=== PATIENT | female | born 1955 | race Caucasian/White ===

== ENCOUNTER 2019-12-15 20:18 | Emergency (ER) | payer OTHER ==
--- OUTSIDE RECORDS SUMMARY | 2019-12-15 20:21 | XMS REPORT | Continuity of Care Document ---
:1955 Author Organization [facility] t Address [address] [place] [address] Care Team Providers Name Role Phone Batsheva Duenas Attending Clinician Unavailable Payers Payer Name Policy Type Policy Number Effective Date Expiration Date S ource Problems Condition Condition Condition Status Onset Resolution Last Treating Co mments Source Name Details Category Date Date Treatment Clinician Date ABNORMALIT Diagnosis Active 2019-02-26 Memoria Y OF 8-20 08:39:00 l PLASMA 00:00: Phillips PROTEIN ABNORMALIT 00 Y OF PLASMA PROTEIN Active 02/20/2019 Claudy Hernandez Allergies, Adverse Reactions, Alerts Allergy Allergy Status Severity Reaction(s) Onset Inactive Treating Comm ents Source Name Type Date Date Clinician penicill penicill Active Memori a ins ins l David Social History Smoking Status Start Date Stop Date Source Social History 2019-02-23 19:45:46 2019-02-23 19:45:46 Claudy Hernandez Medications Ordered Filled Start Stop Current Ordering Indication Dosage Frequency Signature Comments Components Source Medication Medication Date Date Medication? Clinician (SIG) Name Name Lamictal 2019 Yes 200 mg, Memori a 8-23 PO, Daily, l 19:47: 0 Phillips 00 Refill(s) Thyroxine 2019- Yes 88 Memoria 8-23 microgram, l 19:47: PO, Daily, David 00 0 Refill(s) Celebrate 2018- Yes See Memoria Multivitami 02-23 Instructio l n 19:47: ns, Take Phillips 00 (1) tab by mouth daily, 0 Refill(s) quetiapine 2019 Yes See Memoria 300 MG Oral 8-23 Instructio l Tablet 19:47: ns, 1 tab Andrés n [Seroquel] 00 PO Daily, 0 Refill(s) atorvastati Yes 40 mg = 1 M emoria n 40 MG 8-23 tab, PO, l Oral Tablet 19:47: Bedtime, # Phillips [Lipitor] 00 90 tab, 1 Refill(s) Fluoxetine Yes 40 mg = 1 Me moria 40 MG Oral 8-23 cap, PO, l Capsule 19:47: Daily, # Andrés n [Prozac] 00 30 cap, 0 Refill(s) Vital Signs Vital Name Observation Time Observation Value Comments Source Height 2019-02-23 19:31:[address] [facility] Weight 2019-02-23 19:31:00 [facility] BMI Calculated 2019-02-23 19:31:00 [facility] Main Procedures Procedure Date / Time Performed Performing Clinician Sourc e Tonsillectomy [facility] Encounters Start End Encounter Admission Attending Care Care Encounter Source Date/Time Date/Time Type Type Clinicians Facility Department ID 2019-02-26 2019-02-26 Outpatient JOSE Duenas [facility] [id number] 08:32:00 23:59:00 [place]au 00 Batsheva 2019-02-26 2019-02-26 Outpatient [facility] [id number] 08:32:00 08:32:00 Results Test Description Test Time Test Comments Results Result Comments Source HEMATOLOGY 2019-02-26 1.1 [facility] nn 13:52:00 HEMATOLOGY 2019-02-26 4.9 [facility] nn 13:52:00 HEMATOLOGY 2019-02-26 4.01 [facility] nn 13:52:00 HEMATOLOGY 2019-02-26 12.4 [facility] nn 13:52:00 HEMATOLOGY 2019-02-26 35.1 [facility] nn 13:52:00 HEMATOLOGY 2019-02-26 87.6 [facility] nn 13:52:00 HEMATOLOGY 2019-02-26 13:52:00 Test Item Value Reference Range Interpretation Comme nts MCH (test code = MCH) 30.8 pg 27.0-31.0 [id number] 13:52:[facility].2[facility] 2019-02-26 13:52:0014.6[facility] WqjctseZECVZHZEKD2190-07-44 13:52:59086Lwmgqcqr BaigxovNWBACDIAJA6861-59-28 13:52:006.5[facility] PyyhrnsMHKYWCGKJK6485-41-79 13:52:002.7[facility] SbehrkyFNIOERXWFR1933-90-15 13:52:001.6[facility] David [id number] 13:52:000.4[facility] OdoziplBANMTUOWDF2069-91-53 13:52:000.2 [facility] HdtfmolEWUICOXXJQ5571-86-88 13:52:0055.0[facility] 2019-02-26 13:52:000.0[facility] DyjjsxgFWWHDELIVN6861-76-67 13:52:0033.0[facility] BnczxbpUAHJWPRSLC0467-38-05 13:52:008.0[facility] CsvqgqiDNNXNUAJFY9247-79-43 13:52:004.0[facility] MtqybqkTUZKKLBHCJ4223-34-48 13:52:000.0[facility] David [id number] 13:52:00Normal (02/26/19 8:52 AM)[facility] 2019-02-26 13:52:00Normal (02/26/19 8:52 AM)[facility]
--- OUTSIDE RECORDS SUMMARY | 2019-12-15 20:21 | XMS REPORT | Continuity of Care Document ---
:1955 Author Organization [facility] Care Team Providers Name Role Phone [facility] Unavailable Un available Problems Problem Status Onset Classification Date Comments Sourc e Date Reported ABNORMALITY OF Active Memor ial PLASMA PROTEIN 9 Carrie nn Medications Medication Details Route Status Patient Ordering Order Source Instructions Provider Date Lamictal 200 mg, Active PO, Daily, 019 [place] 0 Refill(s) Thyroxine 88 Active MH microgram, 019 [place] PO, Daily, 0 Refill(s) Celebrate See Active Multivitamin Instructio 019 [place] ns, Take (1) tab by mouth daily, 0 Refill(s) quetiapine 300 See Active MG Oral Tablet Instructio 019 [place] [Seroquel] ns, 1 tab PO Daily, 0 Refill(s) atorvastatin 40 40 mg = 1 Active MH MG Oral Tablet tab, PO, 019 [place] [Lipitor] Bedtime, # 90 tab, 1 Refill(s) Fluoxetine 40 40 mg = 1 Active MH MG Oral Capsule cap, PO, 019 [place] [Prozac] Daily, # 30 cap, 0 Refill(s) Allergies, Adverse Reactions, Alerts Substance Category Reaction Severity Reaction Status Date Comments S ource type Reported penicillins Assertion Drug Active allergy [place] Immunizations No Data Provided for This Section Results Order Name Results Value Reference Date Interpretation Comments Leslie rce Range HEMATOLOGY Retic Auto 1.1 0.5 - 1.5 2018 [place] HEMATOLOGY WBC 4.9 3.7 - 10.4 2018 [place] HEMATOLOGY RBC 4.01 4.20 - 5.40 2018 [place] HEMATOLOGY Hgb 12.4 12.0 - 16.0 2018 [place] HEMATOLOGY Hct 35.1 36.0 - 48.0 2018 [place] HEMATOLOGY MCV 87.6 80.0 - 98.0 2018 [facility] MCH 30.8 27.0 - 31.0 2018 [facility] MCHC 35.2 32.0 - 36.0 2018 [facility] RDW 14.6 11.5 - 14.5 2018 [facility] Platelet 223 133 - 450 2018 [facility] MPV 6.5 7.4 - 10.4 2018 [facility] Neutrophils # 2.7 1.5 - 8.1 2018 [facility] Lymphocytes # 1.6 1.0 - 5.5 2018 [facility] Monocytes # 0.4 0.0 - 0.8 2018 [facility] Eosinophils # 0.2 0.0 - 0.5 2018 [facility] Segs 55.0 45.0 - 75.0 2018 [place] HEMATOLOGY Bands 0.0 0.0 - 11.0 2018 [facility] Lymphocytes 33.0 20.0 - 40.0 2018 [facility] Monocytes 8.0 2.0 - 12.0 2018 [facility] Eosinophils 4.0 0.0 - 4.0 2018 [facility] Atypical 0.0 <=0.0 % Lymphs 2018 [facility] RBC Morph Normal Normal (02/26/19 8:52 AM) 2018 [facility] nd HEMATOLOGY Plt Morph Normal Normal (02/26/19 8:52 AM) 2018 [facility] Pathology Reports No Data Provided for This Section Diagnostic Reports Report Value Date Source Bone Marrow Bio/Aspr Patient Name: MICHAEL ROGERS 02/26/2019 [facility] : 1955; Age: 63 years Female MR: [id number] PROCEDURE: 1. CT-guided bone marrow biopsy and aspiration o f the left iliac bone 2. Moderate sedation CLINICAL INFORMATION: Abnormal plasma protein CONSENT: The procedure, risk s, benefits and alternatives were discussed with the patient and written informed consent was obtained. A 'time out' was performed per protocol prior to the procedure. TECHNIQUE: CT imaging performed at this location utilizes radiation dose optimization techniques which include one or more of the following: -Automated exposure control -Adjustment of the mA and/or kV according to pat ient size -Use of iterative reconstruction technique log haul operator: Dr. Blankenship Preoperative diagnosis: Abnormal plasma protein Postoperative diagnosis: Same Radiation dose: 274.89 mGycm Estimated blood loss: Minimal Moderate sedation: I superv ised moderate sedation during this procedure. The patient was continuously monitored by a nurse using automated blood pressure, electrocardiogram, and pulse oximetry. [facility] is per manently stored in the hospital information system. The personal supervised moderate sedation time was 13 minutes. Medications administered: Versed 2 mg IV and Fentanyl 100 mcg IV. The patient was placed in a prone position on the CT table. The left upper gluteal region was prepped and draped with sterile technique and the skin was anesthetized with 1% lidocaine. Under CT guidance, an 11-gau [employer] bone biopsy needle was advanced into the left iliac bone. Approximately 10 mL of bone marrow aspirate was obtained. Subsequently, the biopsy needle was repositioned and a core sample obtained. Both t he core and marrow aspirate were given to the heating and cooling technician. The needles were removed and sterile dressing applied. Patient tolerated the proced ure well and transferred to the recovery room in stable condition. IMPRESSION: Successful bone marrow biopsy. SL: [id number] Consultation Notes No Data Provided for This Section Discharge Summaries No Data Provided for This Section History and Physicals No Data Provided for This Section Vital Signs Vital Sign Value Date Comments Source Height 170.18 cm 02/23/2019 [facility] Weight 75 02/23/2019 [facility] BMI Calculated 25.9 02/23/2019 [facility] Encounters Location Location Encounter Encounter Reason Attending ADM [place] Stat Source Details Type Number For Provider Date Date Visit [facility] [id number] Clau 02/26 02/27 David Duenas /2018 [facility] Procedures Procedure Code Date Perfomer Comments Source Tonsillectomy [id number] [facility] Assessment and Plan No Data Provided for This Section Plan of Care No Data Provided for This Section Social History Social History Date Source Social History TypeResponse 02/23/2019 [facility] Smoking Status Former smoker; Exposure to Tobacco Smoke None; Cigarette Smoking Last 365 Days No; Reg Smoking Cessation Counseling No entered on: 8/23/19 Family History No Data Provided for This Section Advance Directives No Data Provided for This Section Functional Status No Data Provided for This Section
[2019-12-15] MEDS ORDERED: IBUPROFEN 400 MG TAB ONE (21:17)
[2019-12-15] MEDS ORDERED: HYDROCODONE/APAP 5/325 MG TAB ONE (22:31)
[2019-12-15] MEDS ORDERED: propofoL 200 MG/20 ML VIAL IV ONE (23:13)
[2019-12-15] MEDS ORDERED: NA CHLORIDE 0.9% 500 ML ONE (23:13)
[2019-12-15] MEDS ORDERED: MORPHINE 4 MG/ML SYR ONE (23:52)
--- NOTE | 2019-12-16 01:05 | EDPHYS ---
Physician Documentation [facility] Name: Inez Cline Age: 63 yrs Sex: Female : 1955 Arrival Date: 12/15/2019 Time: 20:21 Bed 3 Private MD: ED Physician Virgilio Covarrubias HPI: 12/15 00:49 This 63 yrs old Female presents to ER via Ambulatory with complaints of Fall tw4 Injury, Wrist Injury. 00:49 Details of fall: The patient fell from an upright position, while walking. Onset: The tw4 symptoms/episode began/occurred today. Associated injuries: The patient sustained left wrist, deformity, painful injury. Severity of symptoms: At their worst the symptoms were moderate, in the emergency department the symptoms are unchanged. The patient has not experienced similar symptoms in the past. Historical: - Allergies: 12/14 21:05 PENICILLINS; ca1 - Home Meds: 21:05 lamotrigine 200 mg oral tr24 1 tab once daily [Active]; levothyroxine 88 mcg tab 1 tab ca1 once daily [Active]; fluoxetine 40 mg Oral cap 1 cap once daily [Active]; quetiapine 300 mg oral tab 1 tab nightly [Active]; atorvastatin 40 mg oral tab 1 tab once daily [Active]; - PMHx: 21:05 Thyroid problem; High Cholesterol; ca1 - PSHx: 21:05 None; ca1 - Immunization history:: Adult Immunizations up to date, Last tetanus immunization: < 5 years ago. - Social history:: Smoking status: Patient/guardian denies using tobacco. ROS: 12/15 00:49 Constitutional: Negative for fever, chills, and weight loss, Eyes: Negative for injury, tw4 pain, redness, and discharge, Cardiovascular: Negative for chest pain, palpitations, and edema, Respiratory: Negative for shortness of breath, cough, wheezing, and pleuritic chest pain, Abdomen/GI: Negative for abdominal pain, nausea, vomiting, diarrhea, and constipation, Skin: Negative for injury, rash, and discoloration, Neuro: Negative for headache, weakness, numbness, tingling, and seizure. MS/extremity: Positive for injury or acute deformity, decreased range of motion, deformity, pain. Exam: 00:49 Constitutional: This is a well developed, well nourished patient who is awake, alert, tw4 and in no acute distress. Head/Face: Normocephalic, atraumatic. Chest/axilla: Normal chest wall appearance and motion. Nontender with no deformity. No lesions are appreciated. Cardiovascular: Regular rate and rhythm with a normal S1 and S2. No gallops, murmurs, or rubs. Normal PMI, no JVD. No pulse deficits. Respiratory: Lungs have equal breath sounds bilaterally, clear to auscultation and percussion. No rales, rhonchi or wheezes noted. No increased work of breathing, no retractions or nasal flaring. Abdomen/GI: Soft, non-tender, with normal bowel sounds. No distension or tympany. No guarding or rebound. No evidence of tenderness throughout. Back: No spinal tenderness. No costovertebral tenderness. Full range of motion. Skin: Warm, dry with normal turgor. Normal color with no rashes, no lesions, and no evidence of cellulitis. Neuro: Awake and alert, GCS 15, oriented to person, place, time, and situation. Cranial nerves II-XII grossly intact. Motor strength 5/5 in all extremities. Sensory grossly intact. Cerebellar exam normal. Normal gait. 00:49 Musculoskeletal/extremity: Extremities: noted in the left wrist: decreased ROM, deformity, pain. Vital Signs: 12/14 21:00 BP 171 / 93; Pulse 69; Resp 16 S; Temp 99.4(O); Pulse Ox 97% on R/A; Weight 70.31 kg ca1 (R); Height 5 ft. 7 in. (170.18 cm) (R); Pain 10/10; 23:00 BP 185 / 105; Pulse 69; Resp 16; Temp 97.8; Pulse Ox 98% ; rr5 12/15 00:56 BP 161 / 95; Pulse 62; Resp 17; Pulse Ox 100% ; rr5 01:15 rr5 12/14 21:00 Body Mass Index 24.28 (70.31 kg, 170.18 cm) ca1 12/14 23:00 succeeding VS please see moderate sedation form rr5 12/15 01:15 see moderate sedation for the VS rr5 MDM: 12/14 21:35 Patient medically screened. tw4 12/14 21:07 Order name: XRAY Hand LEFT 3 View ca1 12/14 21:07 Order name: XRAY Forearm LEFT ca1 12/14 23:50 Order name: Wrist Left (2 View) XRAY tw4 12/15 00:44 Order name: Wrist Left (2 View) XRAY tw4 12/14 23:55 Order name: [place] Forearm Splint; Complete Time: 23:56 rr5 12/14 23:55 Order name: Moderate Sedation; Complete Time: 23:56 rr5 12/15 01:36 Order name: Arm-Sling; Complete Time: 01:37 rr5 Administered Medications: 21:10 Drug: Ibuprofen 800 mg Route: PO; ca1 22:10 Follow up: Response: No adverse reaction rr5 22:31 Drug: [place] 5 mg-325 mg 1 tabs {Note: rass 0.} Route: PO; rr5 23:30 Follow up: Response: No adverse reaction; Pain is decreased; RASS: Alert and Calm (0) rr5 22:40 Drug: Propofol 100 mg Route: IVP; Site: right forearm; rr5 12/15 00:00 Follow up: Response: No adverse reaction; RASS: Alert and Calm (0) rr5 01:20 Drug: morphine 2 mg {Note: rass 0.} Route: IVP; Site: right forearm; rr5 01:30 Follow up: Response: No adverse reaction; Medication administered at discharge.; RASS: rr5 Alert and Calm (0) Disposition: 12/16/19 01:04 Discharged to Home. Impression: Colles' fracture of left radius. - Condition is Stable. - Discharge Instructions: Colles Fracture, Wrist Fracture Treated With Immobilization. - Prescriptions for Ibuprofen 800 mg Oral Tablet - take 1 tablet by ORAL route every 8 hours As needed take with food; 30 tablet. Tramadol 50 mg Oral Tablet - take 1 tablet by ORAL route every 8 hours as needed; 12 tablet. - Medication Reconciliation Form, Thank You Letter, Antibiotic Education, Prescription Opioid Use form. - Follow up: Private Physician; When: Upon discharge from the Emergency Department; Reason: Recheck today's complaints, Continuance of care, Re-evaluation by your physician. Follow up: Wilfrido Santana MD; When: Upon discharge from the Emergency Department; Reason: Recheck today's complaints, Continuance of care, Re-evaluation by your physician. Follow up: Ruel Kerr MD; When: Upon discharge from the Emergency Department; Reason: Recheck today's complaints, Continuance of care, Re-evaluation by your physician. Follow up: George Ross MD; When: Upon discharge from the Emergency Department; Reason: Recheck today's complaints, Continuance of care, Re-evaluation by your physician. Follow up: Jose Willson MD; When: Upon discharge from the Emergency Department; Reason: Recheck today's complaints, Continuance of care, Re-evaluation by your physician. - Problem is new. - Symptoms have improved. Signatures: Dispatcher [employer] [facility] Virgilio Covarrubias MD MD tw4 Chris Isaac RN RN rr5 Meredith Salmeron RN RN ca1 Corrections: (The following items were deleted from the chart) 12/14 21:56 21:08 Wrist Left 3 View+RAD.RAD.BRZ ordered. [facility] 21:56 21:08 Elbow Left 3 View+RAD.RAD.BRZ ordered. [facility] 12/15 01:05 01:04 12/16/2019 01:04 Discharged to Home. Impression: Colles' fracture of left radius. tw4 Condition is Stable. Forms are Medication Reconciliation Form, Thank You Letter, Antibiotic Education, Prescription Opioid Use. Follow up: Private Physician; When: Upon discharge from the Emergency Department; Reason: Recheck today's complaints, Continuance of care, Re-evaluation by your physician. Problem is new. Symptoms have improved. tw4 01:38 01:05 12/16/2019 01:04 Discharged to Home. Impression: Colles' fracture of left radius. rr5 Condition is Stable. Discharge Instructions: Colles Fracture, Wrist Fracture Treated With Immobilization. Prescriptions for Ibuprofen 800 mg Oral Tablet - take 1 tablet by ORAL route every 8 hours As needed take with food; 30 tablet, Tramadol 50 mg Oral Tablet - take 1 tablet by ORAL route every 8 hours as needed; 12 tablet. and Forms are Medication Reconciliation Form, Thank You Letter, Antibiotic Education, Prescription Opioid Use. Follow up: Private Physician; When: Upon discharge from the Emergency Department; Reason: Recheck today's complaints, Continuance of care, Re-evaluation by your physician. Follow up: Wilfrido Santana; When: Upon discharge from the Emergency Department; Reason: Recheck today's complaints, Continuance of care, Re-evaluation by your physician. Follow up: Dr. Ruel Kerr; When: Upon discharge from the Emergency Department; Reason: Recheck today's complaints, Continuance of care, Re-evaluation by your physician. Follow up: George Ross; When: Upon discharge from the Emergency Department; Reason: Recheck today's complaints, Continuance of care, Re-evaluation by your physician. Follow up: Jose Willson; When: Upon discharge from the Emergency Department; Reason: Recheck today's complaints, Continuance of care, Re-evaluation by your physician. Problem is new. Symptoms have improved. tw4
--- NOTE | 2019-12-16 01:05 | ER ---
Nurse's Notes [facility] Name: Inez Cline Age: 63 yrs Sex: Female : 1955 Arrival Date: 12/15/2019 Time: 20:21 Bed 3 Private MD: Diagnosis: Colles' fracture of left radius Presentation: 12/14 21:00 Chief complaint: Patient states: Tripped and fell, landed on L hand about an hour ago. ca1 Reports pain. Swelling, bruise and deformity noted on L hand and L wrist. Coronavirus screen: Proceed with normal triage. Patient denies a cough. Patient denies shortness of breath or difficulty breathing. Patient denies measured and/or subjective temperature greater than 100.4F prior to today's visit. Patient denies travel on a cruise ship or to a country the [facility] currently lists as an affected area. Patient denies contact with known and/or suspected case of COVID-19. Ebola Screen: Patient negative for fever greater than or equal to 101.5 degrees Fahrenheit, and additional compatible Ebola Virus Disease symptoms Patient denies exposure to infectious person. Patient denies travel to an Ebola-affected area in the 21 days before illness onset. No symptoms or risks identified at this time. Initial Sepsis Screen: Does the patient meet any 2 criteria? No. Patient's initial sepsis screen is negative. Does the patient have a suspected source of infection? No. Patient's initial sepsis screen is negative. Risk Assessment: Do you want to hurt yourself or someone else? Patient reports no desire to harm self or others. Onset of symptoms was December 15, 2019. 21:00 Method Of Arrival: Ambulatory ca1 21:00 Acuity: YOLANDA 4 ca1 21:40 Acuity: YOLANDA 3 ca1 Historical: - Allergies: 21:05 PENICILLINS; ca1 - Home Meds: 21:05 lamotrigine 200 mg oral tr24 1 tab once daily [Active]; levothyroxine 88 mcg tab 1 tab ca1 once daily [Active]; fluoxetine 40 mg Oral cap 1 cap once daily [Active]; quetiapine 300 mg oral tab 1 tab nightly [Active]; atorvastatin 40 mg oral tab 1 tab once daily [Active]; - PMHx: 21:05 Thyroid problem; High Cholesterol; ca1 - PSHx: 21:05 None; ca1 - Immunization history:: Adult Immunizations up to date, Last tetanus immunization: < 5 years ago. - Social history:: Smoking status: Patient/guardian denies using tobacco. Screenin:00 Abuse screen: Denies threats or abuse. Denies injuries from another. Nutritional rr5 screening: No deficits noted. Tuberculosis screening: No symptoms or risk factors identified. Fall Risk Fall in past 12 months (25 points). Total Fox Fall Scale indicates Low Risk Score (25-44 pts). Fall prevention measures have been instituted. Side Rails Up X 2 Frequent Obs/Assesments occuring As available Patient and Family Educated on Fall Prevention Program and strategies. Assessment: 22:00 General: Appears in no apparent distress. uncomfortable, Behavior is calm, cooperative, rr5 appropriate for age. 22:00 Pain: Complains of pain in left wrist Pain radiates to left hand Pain currently is 10 rr5 out of 10 on a pain scale. Quality of pain is described as aching, Pain began suddenly, Is continuous. Neuro: Level of Consciousness is awake, alert, obeys commands, Oriented to person, place, time, situation. Cardiovascular: Capillary refill < 3 seconds Patient's skin is warm and dry. Respiratory: Airway is patent Respiratory effort is even, unlabored, Respiratory pattern is regular, symmetrical. GI: No signs and/or symptoms were reported involving the gastrointestinal system. : No signs and/or symptoms were reported regarding the genitourinary system. EENT: No signs and/or symptoms were reported regarding the EENT system. Derm: Skin is intact, is healthy with good turgor, Skin temperature is warm. Musculoskeletal: Circulation, motion, and sensation intact. Capillary refill < 3 seconds. 22:40 Reassessment: Patient appears in no apparent distress at this time. Patient is alert, rr5 oriented x 3, equal unlabored respirations, skin warm/dry/pink. for conscious sedation. 23:35 Reassessment: Patient appears in no apparent distress at this time. Patient is alert, rr5 oriented x 3, equal unlabored respirations, skin warm/dry/pink. manual reduction under moderate sedation done by dr. huber myles. 12/15 00:15 Reassessment: Patient appears in no apparent distress at this time. Patient and/or rr5 family updated on plan of care and expected duration. Pain level reassessed. Patient is alert, oriented x 3, equal unlabored respirations, skin warm/dry/pink. Reassessment: Patient appears in no apparent distress at this time. 00:30 Reassessment: manual reduction readjust by ED provider under moderate sedation. rr5 01:30 Reassessment: Patient appears in no apparent distress at this time. Patient is alert, rr5 oriented x 3, equal unlabored respirations, skin warm/dry/pink. discharge instruction given and explained to pipeline engineer and patient without complaints made Patient states feeling better. Patient states symptoms have improved. Vital Signs: 12/14 21:00 BP 171 / 93; Pulse 69; Resp 16 S; Temp 99.4(O); Pulse Ox 97% on R/A; Weight 70.31 kg ca1 (R); Height 5 ft. 7 in. (170.18 cm) (R); Pain 10/10; 23:00 BP 185 / 105; Pulse 69; Resp 16; Temp 97.8; Pulse Ox 98% ; rr5 12/15 00:56 BP 161 / 95; Pulse 62; Resp 17; Pulse Ox 100% ; rr5 01:15 rr5 12/14 21:00 Body Mass Index 24.28 (70.31 kg, 170.18 cm) ca1 12/14 23:00 succeeding VS please see moderate sedation form rr5 12/15 01:15 see moderate sedation for the VS rr5 ED Course: 12/14 20:21 Patient arrived in ED. ds1 21:02 Triage completed. ca1 21:05 Arm band placed on right wrist. ca1 21:13 Affected limb iced. ca1 21:35 Chris Isaac RN is Primary Nurse. rr5 21:35 Virgilio Myles MD is Attending Physician. tw4 21:56 XRAY Hand LEFT 3 View In Process Unspecified. EDMS 21:56 XRAY Forearm LEFT In Process Unspecified. EDMS 22:30 Patient has correct armband on for positive identification. Bed in low position. Call rr5 light in reach. Side rails up X2. bus driver/monitor on. Pulse ox on. NIBP on. 22:30 Inserted saline lock: 20 gauge in right forearm, using aseptic technique. rr5 22:40 Oxygen administration via non-rebreather mask \T\ 15L/min Response to oxygen therapy:. rr5 22:45 Orthoglass splint: Sugar tong splint applied on left arm. rr5 12/15 00:19 Wrist Left (2 View) XRAY In Process Unspecified. EDMS 01:02 Wrist Left (2 View) XRAY In Process Unspecified. EDMS 01:05 Wilfrido Santana MD is Referral Physician. tw4 01:05 Ruel Kerr MD is Referral Physician. tw4 01:05 George Ross MD is Referral Physician. tw4 01:05 Jose Willson MD is Referral Physician. tw4 01:30 No provider procedures requiring assistance completed. IV discontinued, intact, rr5 bleeding controlled, No redness/swelling at site. Pressure dressing applied. Administered Medications: 12/14 21:10 Drug: Ibuprofen 800 mg Route: PO; ca1 22:10 Follow up: Response: No adverse reaction rr5 22:31 Drug: [place] 5 mg-325 mg 1 tabs {Note: rass 0.} Route: PO; rr5 23:30 Follow up: Response: No adverse reaction; Pain is decreased; RASS: Alert and Calm (0) rr5 22:40 Drug: Propofol 100 mg Route: IVP; Site: right forearm; rr5 12/15 00:00 Follow up: Response: No adverse reaction; RASS: Alert and Calm (0) rr5 01:20 Drug: morphine 2 mg {Note: rass 0.} Route: IVP; Site: right forearm; rr5 01:30 Follow up: Response: No adverse reaction; Medication administered at discharge.; RASS: rr5 Alert and Calm (0) Outcome: 01:04 Discharge ordered by . tw4 01:30 Discharged to home via wheelchair, with family. rr5 01:30 Condition: stable 01:30 Discharge instructions given to patient, family, Instructed on discharge instructions, follow up and referral plans. medication usage, Demonstrated understanding of instructions, follow-up care, medications, Prescriptions given X 2. 01:38 Patient left the ED. rr5 Signatures: Dispatcher [employer] [facility] Mine Simpson ds1 Virgilio Myles MD MD tw4 Chris Isaac, RN RN rr5 Meredith Salmeron RN RN ca1 Corrections: (The following items were deleted from the chart) 12/14 22:31 22:31 Phoenix 5 mg-325 mg 1 tabs PO rr5 rr5
[2019-12-16] MEDS ORDERED: MORPHINE 2 MG/ML SYR ONE (01:19)
[2019-12-16 01:47] VITALS: TEMP 97.8
[2019-12-16 01:49] VITALS: BP 161/95; O2SAT 100
--- NOTE | 2019-12-16 08:44 | RAD REPORT ---
EXAM DESCRIPTION: RAD - Hand Left 3 View - 12/15/2019 9:55 pm CLINICAL HISTORY: DEFORMITY, fall, wrist pain COMPARISON: None. FINDINGS: Comminuted transverse fracture of the distal radius is present. There is ventral dislocati on of the distal fracture fragment with 2 cm of overlap. No angulation deformity. Ulna styloid is fra ctured but not displaced. Carpal bones remain normally positioned to the dislocated distal radius fra cture. No carpal bone fracture. Soft tissue swelling over the wrist and hand are noted. No foreign nathaniel dy. IMPRESSION: Comminuted distal left radius fracture dislocation as detailed. Nondisplaced ulna styloid fracture.
--- NOTE | 2019-12-16 08:45 | RAD REPORT ---
EXAM DESCRIPTION: RAD - Forearm Left - 12/15/2019 9:56 pm CLINICAL HISTORY: PAINfall, arm pain COMPARISON: Left wrist same date FINDINGS: Distal radius and ulna fractures are detailed on the left wrist report. Remainder of the left forearm is intact. No elbow joint abnormality seen. Soft tissue swelling present without foreign body. IMPRESSION: Distal left radius and ulna fractures are detailed on wrist report. Remainder of left forearm is intact.
--- NOTE | 2019-12-16 08:56 | RAD REPORT ---
EXAM DESCRIPTION: RAD - Wrist Left 2 View - 12/16/2019 12:19 am FINDINGS: AP and lateral views the left wrist were obtained following reduction maneuvers. Ventral f racture dislocation is again noted. Dislocation and overlap deformities have been partially corrected .
--- NOTE | 2019-12-16 08:57 | RAD REPORT ---
EXAM DESCRIPTION: RAD - Wrist Left 2 View - 12/16/2019 1:01 am FINDINGS: Frontal and lateral views of the left wrist were obtained following additional reduction m andi. Ventral fracture dislocation is again noted. There has been some further correction of the distal fra cture fragment deformities.
== END 2019-12-16 01:38 | disposition home or self-care (01) ==
LOC: ER 20:18
PROC: 0PSJXZZ Reposition Left Radius, External Approach (ICD-10-PCS; principal; 2019-12-16)
DX: S52.532A Colles' fracture of left radius, initial encounter for closed fracture (principal); W19.XXXA Unspecified fall, initial encounter; Y93.01 Activity, walking, marching and hiking; Y92.9 Unspecified place or not applicable; E78.00 Pure hypercholesterolemia, unspecified; E07.9 Disorder of thyroid, unspecified; Z88.0 Allergy status to penicillin
CPT/HCPCS: 73130; 73090; 73100 ×2; 96375; 96374; 99285; 25400; J2704; J2270; J7040

== ENCOUNTER 2021-07-27 16:17 | Emergency (ER) | payer OTHER ==
--- OUTSIDE RECORDS SUMMARY | 2021-07-27 16:20 | XMS REPORT | Continuity of Care Document ---
:1955 Author Organization [facility] t Address [address] [place] [address] Care Team Providers Name Role Phone YORDY Attending Clinician Unavailable Payers Payer Name Policy Type Policy Number Effective Date Expiration Date S ource Problems Condition Condition Condition Status Onset Resolution Last Treating Co mments Source Name Details Category Date Date Treatment Clinician Date ABNORMALIT Diagnosis Active 2019-02-26 Memoria Y OF 8-20 08:39:00 l PLASMA 00:00: David PROTEIN ABNORMALIT 00 Y OF PLASMA PROTEIN [...] Date Date Medication? Clinician (SIG) Name Name Fluoxetine 2019- Yes 40 mg = 1 Me moria 40 MG Oral 8-23 cap, PO, l Capsule 19:47: Daily, # Andrés n [Prozac] 00 30 cap, 0 Refill(s) Lamictal 2019- Yes 200 mg, Memori a 8-23 PO, Daily, l 19:47: 0 [place] 00 Refill(s) Thyroxine 2019- Yes 88 Memoria 8-23 microgram, l 19:47: PO, Daily, David 00 0 Refill(s) Celebrate Yes See Memoria Multivitami 02-23 Instructio l n 19:47: ns, Take [place] 00 (1) tab by mouth daily, 0 Refill(s) quetiapine Yes See Memoria 300 MG Oral 02-23 Instructio l Tablet 19:47: ns, 1 tab Andrés n [Seroquel] 00 PO Daily, 0 Refill(s) atorvastati Yes 40 mg = 1 M emoria n 40 MG 02-23 tab, PO, l Oral Tablet 19:47: Bedtime, # David [Lipitor] 00 90 tab, 1 Refill(s) Vital Signs Vital Name Observation Time Observation Value Comments Source Height 2019-02-23 19:31:00 170.18 cm [facility] Weight 2019-02-23 19:31:00 [facility] BMI Calculated 2019-02-23 19:31:00 Adrian Main Procedures Procedure Date / Time Performed Performing Clinician Sour e Tonsillectomy [facility] Encounters Start End Encounter Admission Attending Care Care Encounter Source Date/Time Date/Time Type Type Clinicians Facility Department ID 2021-02-18 2021-02-18 Outpatient [facility] [id number] 00:00:00 00:00:00 KENN [facility] 2021-02-18 2021-02-18 Outpatient [facility] [id number] [address] [place] [address] 00:00:00 00:00:00 KENN [address] [facility] 2019-02-26 2019-02-27 Outpatient [facility] [id number] Memoria 13:32:00 04:59:00 ralph Hernandez 00 l [facility] 2019-02-26 2019-02-26 Outpatient [facility] [id number] [facility] 08:32:00 08:32:00 Results Test Description Test Time Test Comments Results Result Comments Source HEMATOLOGY 2019-02-26 4.9 Claudy Butler nn 13:52:00 HEMATOLOGY 2019-02-26 4.01 Claudy Butler nn 13:52:00 HEMATOLOGY 2019-02-26 12.4 Claudy Aguirrea nn 13:52:00 HEMATOLOGY 2019-02-26 35.1 Claudy Butler nn 13:52:00 HEMATOLOGY 2019-02-26 87.6 Claudy Aguirrea nn 13:52:00 HEMATOLOGY 2019-02-26 13:52:00 Test Item Value Reference Range Interpretation Comme nts MCH (test code = MCH) 30.8 pg 27.0-31.0 [facility] [id number] 13:52:0035.2[facility] 2019-02-26 13:52:0014.6[facility] [id number] 13:52:52229Kjutskyz PblauqfUBEUUTEVZV1080-81-18 13:52:006.5[facility] IislnzbDTFEHXACKM3834-07-62 13:52:002.7[facility] FazfgfeBYVNBREHRK3257-28-24 13:52:001.6[facility] David [id number] 13:52:000.4[facility] [id number] 13:52:000.2 [facility] EfghwupZKVYNUBAYM4315-32-70 13:52:0055.0[facility] 2019-02-26 13:52:000.0[facility] XavvepxJNLZGMCUYH7759-53-78 13:52:0033.0[facility] HbkhldhVMVSSQYDJI6638-24-42 13:52:008.0[facility] DfcsdazBULESZJXCC8340-60-76 13:52:004.0[facility] [id number] 13:52:000.0[facility] [place] [id number] 13:52:00Normal (02/26/19 8:52 AM)[facility] 2019-02-26 13:52:00Normal (02/26/19 8:52 AM)[facility] [id number] 13:52:001.1[facility] David
[2021-07-27] MEDS ORDERED: HYDROCODONE/APAP 7.5/325 MG TAB ONE (16:57)
--- NOTE | 2021-07-27 17:49 | RAD REPORT ---
EXAM DESCRIPTION: CT - Head Brain Wo Cont - 07/27/2021 5:35 pm CLINICAL HISTORY: DIZZINESS COMPARISON: No comparisons TECHNIQUE: Axial 5 mm thick images of the head were obtained without IV contrast. All CT scans are performed using dose optimization technique as appropriate and may include automated exposure control or mA/KV adjustment according to patient size. FINDINGS: No intracranial hemorrhage, mass, edema or shift of mid-line structures. No acute infarcti on changes seen. No abnormal extra-axial fluid collections. Ventricles are normal. No measurable atro phy or chronic ischemic changes seen. Arterial and physiologic calcifications are present. Mastoid air cells and visualized portions of the paranasal sinuses are clear. No acute bony findings. Patient has normal variant hyperostosis frontalis interna. Skin payal are present from laceration repair. A trace amount of hemorrhage seen in the scalp soft tissues. IMPRESSION: No intracranial abnormality identified. Only a trace amount of hemorrhage is seen in the scalp soft tissues at the laceration site.
--- NOTE | 2021-07-27 18:15 | EDPHYS ---
Physician Documentation [facility] Name: Inez Cline Age: 65 yrs Sex: Female : 1955 Arrival Date: 07/27/2021 Time: 16:20 Bed 10 Private MD: ED Physician Tyree Yin HPI: 07/27 18:08 This 65 yrs old Female presents to ER via Ambulatory with complaints of Fall Injury, jr8 Laceration To Head. 18:08 Details of fall: The patient fell from an upright position. Onset: The symptoms/episode jr8 began/occurred acutely, today. This is a 65-year-old female patient that presented to the emergency room after having an accidental slip and her kitchen floor causing her to land on the right side of her head. Denies loss of consciousness but had immediate pain with laceration and bleeding to the right side of the head. Currently with pain to the local site of her head but has not have any diffuse headache for patient. Stated that she is slightly dizzy at this time. Denies any other pain at this time.. Historical: - Allergies: 16:42 PENICILLINS; jd3 - PMHx: 16:42 High Cholesterol; Thyroid problem; jd3 - Immunization history:: Adult Immunizations up to date, Client reports receiving the 2nd dose of the Covid vaccine, Flu vaccine is up to date. - Social history:: Smoking status: Patient denies any tobacco usage or history of. ROS: 18:08 Eyes: Negative for injury, pain, redness, and discharge, ENT: Negative for injury, jr8 pain, and discharge, Neck: Negative for injury, pain, and swelling, Cardiovascular: Negative for chest pain, palpitations, and edema, Respiratory: Negative for shortness of breath, cough, wheezing, and pleuritic chest pain, Abdomen/GI: Negative for abdominal pain, nausea, vomiting, diarrhea, and constipation, Back: Negative for injury and pain, MS/Extremity: Negative for injury and deformity. 18:08 Skin: Positive for laceration(s), of the head. 18:08 Neuro: Positive for dizziness. Exam: 18:08 Eyes: Pupils equal round and reactive to light, extra-ocular motions intact. Lids and jr8 lashes normal. Conjunctiva and sclera are non-icteric and not injected. Cornea within normal limits. Periorbital areas with no swelling, redness, or edema. ENT: Nares patent. No nasal discharge, no septal abnormalities noted. Tympanic membranes are normal and external auditory canals are clear. Oropharynx with no redness, swelling, or masses, exudates, or evidence of obstruction, uvula midline. Mucous membranes moist. Neck: Trachea midline, no thyromegaly or masses palpated, and no cervical lymphadenopathy. Supple, full range of motion without nuchal rigidity, or vertebral point tenderness. No Meningismus. Chest/axilla: Normal chest wall appearance and motion. Nontender with no deformity. No lesions are appreciated. Cardiovascular: Regular rate and rhythm with a normal S1 and S2. No gallops, murmurs, or rubs. Normal PMI, no JVD. No pulse deficits. Respiratory: Lungs have equal breath sounds bilaterally, clear to auscultation and percussion. No rales, rhonchi or wheezes noted. No increased work of breathing, no retractions or nasal flaring. Abdomen/GI: Soft, non-tender, with normal bowel sounds. No distension or tympany. No guarding or rebound. No evidence of tenderness throughout. Back: No spinal tenderness. No costovertebral tenderness. Full range of motion. Skin: Warm, dry with normal turgor. Normal color with no rashes, no lesions, and no evidence of cellulitis. MS/ Extremity: Pulses equal, no cyanosis. Neurovascular intact. Full, normal range of motion. Neuro: Awake and alert, GCS 15, oriented to person, place, time, and situation. Cranial nerves II-XII grossly intact. Motor strength 5/5 in all extremities. Sensory grossly intact. Cerebellar exam normal. Normal gait. 18:08 Head/face: Noted is a laceration(s), that is deep, that is linear, 4 cm(s), of the right side of the back of head. Vital Signs: 16:44 BP 169 / 101; Pulse 77; Resp 18 S; Temp 97.4(TE); Pulse Ox 100% on R/A; Weight 77.11 kg jd3 (R); Height 5 ft. 7 in. (170.18 cm) (R); Pain 8/10; 16:44 Body Mass Index 26.63 (77.11 kg, 170.18 cm) jd3 Laceration: 17:04 Wound Repair of 4cm ( 1.6in ) subcutaneous laceration to head. Distal jr8 neuro/vascular/tendon intact. Wound prep: Moderate cleansing with hibiclenz. Skin closed with 4 payal [place] using interrupted sutures and sterile technique. Patient tolerated well. MDM: 17:04 Patient medically screened. jr8 18:13 Data reviewed: vital signs, nurses notes, radiologic studies, CT scan. Data jr8 interpreted: Pulse oximetry: on room air is 100 %. Interpretation: normal. Counseling: I had a detailed discussion with the patient and/or guardian regarding: the historical points, exam findings, and any diagnostic results supporting the discharge/admit diagnosis, the need for outpatient follow up, a family practitioner, to return to the emergency department if symptoms worsen or persist or if there are any questions or concerns that arise at home. ED course: Patient is up-to-date on tetanus. Close return precautions given if she were to have any altered mentation or worsening of symptoms. Otherwise knows to come back in 1 week for staple removal and wound recheck.. 07/27 16:53 Order name: CT Head Brain wo Cont; Complete Time: 17:57 jd3 Administered Medications: 16:59 Drug: [place] (HYDROcodone-acetaminophen) (7.5 mg-325 mg) 1 tabs Route: PO; jd3 Disposition: 19:04 Co-signature as Attending Physician, Tyree Yin MD I agree with the assessment and kdr plan of care. Disposition Summary: 07/27/21 18:14 Discharge Ordered Location: Home jr8 Problem: new jr8 Symptoms: have improved jr8 Condition: Stable jr8 Diagnosis - Laceration without foreign body of scalp jr8 Followup: jr8 - With: Emergency Department - When: 1 week - Reason: Wound Recheck, Recheck today's complaints, Staple/Suture removal, Re-evaluation by your physician Discharge Instructions: - Discharge Summary Sheet jr8 - Laceration Care, Adult jr8 - Sutures, [place], or Adhesive Wound Closure jr8 Forms: - Medication Reconciliation Form jr8 - Thank You Letter jr8 - Antibiotic Education jr8 - Prescription Opioid Use jr8 Signatures: Dispatcher [employer] EDMD Tyree Yin MD MD kdr Roszak, Josh, PA PA jr8 Montaño, Mc, RN RN jd3
--- NOTE | 2021-07-27 18:15 | ER ---
Nurse's Notes [facility] Name: Inez Cline Age: 65 yrs Sex: Female : 1955 Arrival Date: 07/27/2021 Time: 16:20 Bed 10 Private MD: Diagnosis: Laceration without foreign body of scalp Presentation: 07/27 16:40 Chief complaint: Patient states: "I slipped and fell and hit the back of my head on the jd3 tile floor. no LOC. no blood thinners. i am feeling a little dizzy now and have a bad headache.". Coronavirus screen: At this time, the client does not indicate any symptoms associated with coronavirus-19. Ebola Screen: No symptoms or risks identified at this time. Initial Sepsis Screen: Does the patient meet any 2 criteria? No. Patient's initial sepsis screen is negative. Does the patient have a suspected source of infection? No. Patient's initial sepsis screen is negative. Risk Assessment: Do you want to hurt yourself or someone else? Patient reports no desire to harm self or others. Onset of symptoms was July 27, 2021. 16:40 Method Of Arrival: Ambulatory j 16:40 Acuity: YOLANDA 3 jd3 Historical: - Allergies: 16:42 PENICILLINS; jd3 - PMHx: 16:42 High Cholesterol; Thyroid problem; jd3 - Immunization history:: Adult Immunizations up to date, Client reports receiving the 2nd dose of the Covid vaccine, Flu vaccine is up to date. - Social history:: Smoking status: Patient denies any tobacco usage or history of. Screenin:59 Abuse screen: Denies threats or abuse. Nutritional screening: No deficits noted. jd3 Tuberculosis screening: No symptoms or risk factors identified. Fall Risk Fall in past 12 months (25 points). Gait- Normal/Bed Rest/Wheelchair (0 pts) Mental Status- Oriented to own ability (0 pts). Total Fox Fall Scale indicates Low Risk Score (25-44 pts). Fall prevention measures have been instituted. Side Rails Up X 2 Placed close to Nursing Station Frequent Obs/Assesments occuring Family Present and informed to notify staff if they need to leave bedside. Assessment: 16:47 General: Appears in no apparent distress. comfortable, Behavior is calm, cooperative, jd3 appropriate for age. Pain: Complains of pain in head Quality of pain is described as aching, pressure, tender. Neuro: Level of Consciousness is awake, alert, obeys commands, Reports dizziness. Cardiovascular: No deficits noted. Respiratory: Airway is patent Respiratory effort is even, unlabored, Respiratory pattern is regular, symmetrical. GI: No signs and/or symptoms were reported involving the gastrointestinal system. : No signs and/or symptoms were reported regarding the genitourinary system. EENT: No signs and/or symptoms were reported regarding the EENT system. Derm: Skin is intact, Skin is dry, Skin is normal, Skin temperature is warm. Vital Signs: 16:44 BP 169 / 101; Pulse 77; Resp 18 S; Temp 97.4(TE); Pulse Ox 100% on R/A; Weight 77.11 kg j (R); Height 5 ft. 7 in. (170.18 cm) (R); Pain 8/10; 16:44 Body Mass Index 26.63 (77.11 kg, 170.18 cm) [facility] ED Course: 16:20 Patient arrived in ED. mr 16:42 Triage completed. jd3 16:44 Arm band placed on. jd3 16:59 Patient has correct armband on for positive identification. Bed in low position. Call j light in reach. Side rails up X 1. Adult w/ patient. Pulse ox on. NIBP on. 17:04 Blas Oconnor PA is PHCP. [facility] 17:04 Tyree Yin MD is Attending Physician. jr8 17:35 CT Head Brain wo Cont In Process Unspecified. EDOK 18:22 Gladis Beltran, JAYA is Primary Nurse. [facility] Administered Medications: 16:59 Drug: [place] (HYDROcodone-acetaminophen) (7.5 mg-325 mg) 1 tabs Route: PO; jd3 Outcome: 18:14 Discharge ordered by . jr8 18:22 Patient left the ED. [facility] Signatures: Dispatcher [employer] EDOK Alejandro Brianne mr Blas Oconnor PA PA jr8 Mc Montaño RN RN jGladis Lake RN RN [facility]
[2021-07-28 00:22] VITALS: BP 169/101; TEMP 97.4; O2SAT 100
== END 2021-07-27 18:22 | disposition home or self-care (01) ==
LOC: ER 16:17
PROC: 0JQ00ZZ Repair Scalp Subcutaneous Tissue and Fascia, Open Approach (ICD-10-PCS; principal; 2021-07-27)
DX: S01.01XA Laceration without foreign body of scalp, initial encounter (principal); W01.10XA Fall on same level from slipping, tripping and stumbling with subsequent striking against unspecified object, initial encounter; Y93.01 Activity, walking, marching and hiking; Z88.0 Allergy status to penicillin
CPT/HCPCS: 70450; 99283

== ENCOUNTER 2021-08-03 08:41 | Emergency (ER) | payer OTHER ==
--- OUTSIDE RECORDS SUMMARY | 2021-08-03 08:43 | XMS REPORT | Continuity of Care Document ---
:1955 Author Organization [facility] t Address [facility] [address] [place] [address] Care Team Providers Name Role Phone YORDY [...] a 8-23 PO, Daily, l 19:47: 0 [place] 00 Refill(s) Thyroxine 2018- Yes 88 Memoria 8-23 microgram, l 19:47: PO, Daily, [place] 00 0 Refill(s) Celebrate Yes See Memoria Multivitami 02-23 Instructio l n 19:47: ns, Take [place] 00 (1) tab by mouth daily, 0 Refill(s) quetiapine Yes See Memoria 300 MG Oral 02-23 Instructio l Tablet 19:47: ns, 1 tab Andrés n [Seroquel] 00 PO Daily, 0 Refill(s) atorvastati Yes 40 mg = 1 M emoria n 40 MG 02-23 tab, PO, l Oral Tablet 19:47: Bedtime, # [place] [Lipitor] 00 90 tab, 1 Refill(s) Vital Signs Vital Name Observation Time Observation Value Comments Source Height 2019-02-23 19:31:00 170.18 cm [facility] Weight 2019-02-23 19:31:00 [facility] David BMI Calculated 2019-02-23 19:31:00 [facility] Main Procedures Procedure Date / Time Performed Performing Clinician [facility] e Tonsillectomy [facility] Encounters Start End Encounter Admission Attending Care Care Encounter Source Date/Time Date/Time Type Type Clinicians Facility Department ID 2021-02-18 2021-02-18 Outpatient [facility] [id number] 00:00:00 00:00:00 KENN 213 Method i 2021-02-18 2021-02-18 Outpatient [facility] [id number] [address] [place] [address] 00:00:00 00:00:00 KENN 216 Method i 2019-02-26 2019-02-27 Outpatient [facility] [id number] Memoria 13:32:00 04:59:00 ralph Hernandez 00 l [facility] 2019-02-26 2019-02-26 Outpatient [facility] [id number] [facility] 08:32:00 08:32:00 Results Test Description Test Time Test Comments Results Result Comments Source HEMATOLOGY 2019-02-26 1.1 Claudy Butler nn 13:52:00 HEMATOLOGY 2019-02-26 4.9 Claudy Butler nn 13:52:00 HEMATOLOGY 2019-02-26 4.01 Claudy Aguirrea nn 13:52:00 HEMATOLOGY 2019-02-26 12.4 Claudy Aguirrea nn 13:52:00 HEMATOLOGY 2019-02-26 35.1 Claudy Aguirrea nn 13:52:00 HEMATOLOGY 2019-02-26 87.6 [facility] nn 13:52:00 HEMATOLOGY 2019-02-26 13:52:00 Test Item Value Reference Range Interpretation Comme nts MCH (test code = MCH) 30.8 pg 27.0-31.0 [facility] [id number] 13:52:0035.2[facility] 2019-02-26 13:52:0014.6[facility] YbvrzegREXXRXXKPZ8258-07-24 13:52:32865Qtkmfluz DatmsslKLJOYMILPA6788-54-81 13:52:006.5[facility] RaouidcMZOOARZLTA6745-86-48 13:52:002.7[facility] WpswgblGFFRQMMAWV7461-25-77 13:52:001.6[facility] [place] YRURFUIWDX8217-13-04 13:52:000.4[facility] KtexphhAODKEPDEUB6754-56-79 13:52:000.2 [facility] KlxemsqRUPILAGZRH5576-18-38 13:52:0055.0[facility] 2019-02-26 13:52:000.0[facility] CaryelrBELAMQSJPF6903-35-63 13:52:0033.0[facility] QmqlzezULNORDZRYG5533-97-95 13:52:008.0[facility] RadepqzHOUBYGVDIG6447-03-89 13:52:004.0[facility] XbifihtAUWLVSVCXS5595-88-02 13:52:000.0[facility] David KRRNTUAXJA3464-73-07 13:52:00Normal (02/26/19 8:52 AM)[facility] 2019-02-26 13:52:00Normal (02/26/19 8:52 AM)[facility] [place]
--- NOTE | 2021-08-03 08:55 | ER ---
Nurse's Notes [facility] Name: Inez Cline Age: 65 yrs Sex: Female : 1955 Arrival Date: 08/03/2021 Time: 08:43 Bed Waiting Private MD: Diagnosis: Encounter for removal of sutures-payal Presentation: 08/03 08:52 Chief complaint: Patient states: Here to have payal removed from back of head. Placed ss on 07/27. Coronavirus screen: Client denies travel out of the [place] in the last 14 days. Ebola Screen: Patient denies exposure to infectious person. Patient denies travel to an Ebola-affected area in the 21 days before illness onset. Initial Sepsis Screen: Does the patient meet any 2 criteria? No. Patient's initial sepsis screen is negative. Does the patient have a suspected source of infection? No. Patient's initial sepsis screen is negative. Risk Assessment: Do you want to hurt yourself or someone else? Patient reports no desire to harm self or others. Onset of symptoms was July 27, 2021. 08:52 Method Of Arrival: Ambulatory ss 08:52 Acuity: YOLANDA 5 ss Historical: - Allergies: 08:53 PENICILLINS; ss - PMHx: 08:53 High Cholesterol; Thyroid problem; ss - Immunization history:: Adult Immunizations up to date. - Social history:: Smoking status: Patient denies any tobacco usage or history of. Screenin:53 Abuse screen: Denies threats or abuse. Denies injuries from another. Nutritional ss screening: No deficits noted. Tuberculosis screening: Never had TB. Fall Risk None identified. Assessment: 08:53 General: Appears in no apparent distress. comfortable. Neuro: Level of Consciousness is ss awake, alert. Respiratory: Airway is patent Respiratory effort is even, unlabored, Respiratory pattern is regular, symmetrical. Derm: Skin is intact, is healthy with good turgor, Skin is pink, warm \T\ dry. normal. Vital Signs: 08:52 BP 131 / 83; Pulse 82; Resp 16; Temp 97.6(TE); Pulse Ox 98% on R/A; Pain 0/10; ss ED Course: 08:43 Patient arrived in ED. as 08:53 Triage completed. ss 08:53 Khadra Ortez FNP-C is PHCP. kb 08:53 Reynaldo Khan MD is Attending Physician. kb 08:53 Arm band placed on right wrist. ss 08:53 Patient has correct armband on for positive identification. ss 08:53 No provider procedures requiring assistance completed. Patient did not have IV access ss during this emergency room visit. Removal of Removed payal from scalp Warren site is well healed Removal by ADE Gaviria Patient tolerated well. Administered Medications: No medications were administered Outcome: 08:53 No charge visit due to suture removal. ss 08:54 Discharge ordered by . kb 08:55 Discharged to home ambulatory. ss 08:55 Condition: good 08:55 Discharge instructions given to patient, Instructed on discharge instructions, follow up and referral plans. Demonstrated understanding of instructions, follow-up care. 08:55 Patient left the ED. ss Signatures: Khadra Ortez, INDEPENDENT PRODUCER-C INDEPENDENT PRODUCER-Melly Patel Shelby, RN RN ss
--- NOTE | 2021-08-03 08:55 | EDPHYS ---
Physician Documentation [facility] Name: Inez Cline Age: 65 yrs Sex: Female : 1955 Arrival Date: 08/03/2021 Time: 08:43 Bed Waiting Private MD: ED Physician Reynaldo Khan HPI: 08/03 09:01 This 65 yrs old Female presents to ER via Ambulatory with complaints of Staple Removal. kb 09:01 The patient has payal on the scalp. Previous treatment: The patient was initially kb treated on July 27, 2021. Sutures/payal progress: The patient has no c/o's. The wound is well-healing with no redness, swelling, discharge, or dehiscence reported. The patient has not experienced similar symptoms in the past. The patient has not recently seen a physician. Historical: - Allergies: 08:53 PENICILLINS; ss - PMHx: 08:53 High Cholesterol; Thyroid problem; ss - Immunization history:: Adult Immunizations up to date. - Social history:: Smoking status: Patient denies any tobacco usage or history of. ROS: 09:00 Constitutional: Negative for fever, chills, and weight loss. kb 09:00 Skin: Positive for laceration(s), of the scalp, payal in place. 09:00 All other systems are negative. Exam: 09:00 Constitutional: This is a well developed, well nourished patient who is awake, alert, kb and in no acute distress. Head/Face: Normocephalic, atraumatic. ENT: Moist Mucous membranes Respiratory: Respirations even and unlabored. No increased work of breathing. Talking in full sentences MS/ Extremity: Pulses equal, no cyanosis. Neurovascular intact. Full, normal range of motion. Neuro: Awake and alert, GCS 15, oriented to person, place, time, and situation. Moves all extremities. Normal gait. Psych: Awake, alert, with orientation to person, place and time. Behavior, mood, and affect are within normal limits. 09:00 Skin: Wound recheck: Staple laceration closure: the wound is healing well, the edges are well approximated, no evidence of dehiscence, no drainage, no erythema, no swelling. Vital Signs: 08:52 BP 131 / 83; Pulse 82; Resp 16; Temp 97.6(TE); Pulse Ox 98% on R/A; Pain 0/10; ss Procedures: 09:00 Suture/Staple removal: Removed 4 payal, from scalp, site appears well healed, Patient kb tolerated well. MDM: 08:54 Patient medically screened. kb 09:00 Data reviewed: vital signs, nurses notes. Data interpreted: Pulse oximetry: on room air kb is 98 %. Interpretation: normal. Counseling: I had a detailed discussion with the patient and/or guardian regarding: the historical points, exam findings, and any diagnostic results supporting the discharge/admit diagnosis, the need for outpatient follow up, a family practitioner, to return to the emergency department if symptoms worsen or persist or if there are any questions or concerns that arise at home. Administered Medications: No medications were administered Disposition: 16:57 Co-signature as Attending Physician, Reynaldo Khan MD I agree with the assessment and rn plan of care. Attestation: The patient's history, exam findings, diagnostics, and a summary of any interventions or procedures was reviewed in detail with Khadra MORENO. Disposition Summary: 08/03/21 08:54 Discharge Ordered Location: Home kb Condition: Stable kb Diagnosis - Encounter for removal of sutures - payal kb Followup: kb - With: Emergency Department - When: As needed - Reason: Worsening of condition Followup: kb - With: Private Physician - When: 2 - 3 days - Reason: Recheck today's complaints, Continuance of care, Re-evaluation by your physician Discharge Instructions: - Discharge Summary Sheet kb - Suture Removal, Care After kb Forms: - Medication Reconciliation Form kb - Thank You Letter kb - Antibiotic Education kb - Prescription Opioid Use kb Signatures: Khadra Ortez FNP-C FNP-Reynaldo Styles MD MD rn Smirch, Shelby, RN RN ss
[2021-08-03 09:00] VITALS: BP 131/83; TEMP 97.6; O2SAT 98
== END 2021-08-03 08:55 | disposition home or self-care (01) ==
LOC: ER 08:41
DX: Z48.02 Encounter for removal of sutures (principal); E78.00 Pure hypercholesterolemia, unspecified; Z88.0 Allergy status to penicillin

== ENCOUNTER 2022-03-17 13:50 | Emergency (ER) | payer OTHER, SELFPAY ==
--- OUTSIDE RECORDS SUMMARY | 2022-03-17 13:52 | XMS REPORT | Continuity of Care Document ---
:1955 Author Organization [facility] t Address [address] [place] [address] Care Team Providers Name Role Phone Kenn Thomas MD Primary Care Physician GISELLE_YEN_Pavel_I Attending Clinician Unavailable KENN THOMAS Attending Clinician Unavailable Clau Duenas Attending Clinician Unavailable GISELLE_YEN_Pavel_I Admitting Clinician Unavailable Payers Payer Name Policy Type Policy Number Effective Date Expiration Date Juliann mabry [place]: [id number] 2021 [place] [employer] 00:00:00 [employer] (MEDICARE [id number] SUPPLEMENT) Problems Condition Condition Condition Status Onset Resolution Last Treating Co mments Source Name Details Category Date Date Treatment Clinician Date ABNORMALIT ABNORMALI Diagnosis Active 2019-02-26 Memoria Y OF TY OF 8-20 08:39:00 l PLASMA PLASMA 00:00: David PROTEIN PROTEIN 00 [facility] Allergies, Adverse Reactions, Alerts Allergy Allergy Status Severity Reaction(s) Onset Inactive Treating Comm ents Source Name Type Date Date Clinician penicill penicill Active Memori a ins ins l David Social History Social Habit Start Date Stop Date Quantity Comments Source Sex Assigned At [birth year] [facility] 00:00:00 00:00:00 Smoking Status Start Date Stop Date Source Tobacco smoking consumption [facility] unknown Social History 2019-02-23 19:45:46 2019-02-23 19:45:46 [facility] Medications Ordered Filled Start Stop Current Ordering Indication Dosage Frequency Signature Comments Components Source Medication Medication Date Date Medication? Clinician (SIG) Name Name Thyroxine Yes 88 Memoria 8-23 microgram, l 19:47: PO, Daily, David 00 0 Refill(s) Celebrate Yes See Memoria Multivitami 8-23 Instructio l n 19:47: ns, Take David 00 (1) tab by mouth daily, 0 Refill(s) quetiapine Yes See Memoria 300 MG Oral 8-23 Instructio l Tablet 19:47: ns, 1 tab Andrés n [Seroquel] 00 PO Daily, 0 Refill(s) Fluoxetine Yes 40 mg = 1 Me moria 40 MG Oral 8-23 cap, PO, l Capsule 19:47: Daily, # Andrés n [Prozac] 00 30 cap, 0 Refill(s) Lamictal Yes 200 mg, Memori a 8-23 PO, Daily, l 19:47: 0 [place] 00 Refill(s) Thyroxine Yes 88 Memoria 8-23 microgram, l 19:47: PO, Daily, [place] 00 0 Refill(s) Celebrate Yes See Memoria Multivitami 8-23 Instructio l n 19:47: ns, Take [place] 00 (1) tab by mouth daily, 0 Refill(s) quetiapine Yes See Memoria 300 MG Oral 8-23 Instructio l Tablet 19:47: ns, 1 tab Andrés n [Seroquel] 00 PO Daily, 0 Refill(s) atorvastati Yes 40 mg = 1 M emoria n 40 MG 8-23 tab, PO, l Oral Tablet 19:47: Bedtime, # David [Lipitor] 00 90 tab, 1 Refill(s) atorvastati Yes 40 mg = 1 M emoria n 40 MG 8-23 tab, PO, l Oral Tablet 19:47: Bedtime, # David [Lipitor] 00 90 tab, 1 Refill(s) Fluoxetine 2019-0 Yes 40 mg = 1 Me moria 40 MG Oral 8-23 cap, PO, l Capsule 19:47: Daily, # Andrés n [Prozac] 00 30 cap, 0 Refill(s) Lamictal 0 Yes 200 mg, Memori a 8-23 PO, Daily, l 19:47: 0 David 00 Refill(s) Vital Signs Vital Name Observation Time Observation Value Comments Source Height 2019-02-23 19:31:00 170.18 cm [facility] Weight 2019-02-23 19:31:00 [facility] BMI Calculated 2019-02-23 19:31:00 Adrian al [place] Procedures Procedure Date / Time Performed Performing Clinician [facility] e Tonsillectomy [facility] Plan of Care Planned Activity Planned Date Details Comments Source Future Scheduled 2022-03-03 SHINGLES VACCINES (1 Met [facility] Test 15:53:16 of 2) [code = SHINGLES VACCINES (1 of 2)] Future Scheduled 2022-03-03 65+ [facility]OC[address]CCAL [facility] Test 15:53:16 VACCINE (1 - PCV) [code = 65+ PNEUMOCOCCAL VACCINE (1 - PCV)] Future Scheduled 2022-03-03 INFLUENZA VACCINE Method [facility] Test 15:53:16 [code = INFLUENZA VACCINE] Future Scheduled 2022-03-03 HEPATITIS B VACCINES Met [facility] Test 15:53:16 (1 of 3 - 3-dose series) [code = HEPATITIS B VACCINES (1 of 3 - 3-dose series)] Future Scheduled 2022-03-03 COVID-19 VACCINE (#1) [facility] Test 15:53:16 [code = COVID-19 VACCINE (#1)] Future Scheduled 2022-03-03 Hepatitis C screening [facility] Test 15:53:16 (procedure) [code = 839372385] Future Scheduled 2022-03-03 Screening for [facility] Test 15:53:16 malignant neoplasm of cervix (procedure) [code = 940144126] Future Scheduled 2022-03-03 BREAST CANCER [facility] Test 15:53:16 SCREENING [code = BREAST CANCER SCREENING] Future Scheduled 2022-03-03 COLONOSCOPY SCREENING [facility] Test 15:53:16 [code = COLONOSCOPY SCREENING] Encounters Start End Encounter Admission Attending Care Care Encounter Source Date/Time Date/Time Type Type Clinicians Facility Department ID 2022-03-16 2022-03-16 Outpatient GC_TNC_Cher PRIV PRIV [id number] [facility] 00:00:00 00:00:00 ches_I [id number] Medica l 2022-03-12 2022-03-12 Outpatient GC_TNC_Cher PRIV PRIV [id number] [facility] 00:00:00 00:00:00 ches_I [id number] Medica l 2022-02-18 2022-02-18 Outpatient GC_TNC_Cher PRIV PRIV [id number] [facility] 00:00:00 00:00:00 ches_I [id number] Medica l 2022-02-15 2022-02-15 Outpatient GC_TNC_Cher PRIV PRIV [id number] [facility] 00:00:00 00:00:00 ches_I [id number] Medica l 2021-02-18 2021-02-18 Outpatient [facility] [id number] [place] 00:00:00 00:00:00 KENN [address] 2021-02-18 2021-02-18 Outpatient [facility] [id number] [place] 00:00:00 00:00:00 KENN [address] 2019-02-26 2019-02-27 [id number] [facility] 13:32:00 04:59:00 ralph Hernandez 00 l [facility] 2019-02-26 2019-02-27 [id number] Memoria 13:32:00 04:59:00 ralph Hernandez 00 l [facility] 2019-02-26 2019-02-26 Outpatient JOSE Duenas [facility] [id number] 08:32:00 23:59:00 Clau 00 [place] 2019-02-26 2019-02-26 Outpatient [facility] [id number] [facility] 08:32:00 08:32:00 2017-12-11 2017-12-11 Outpatient GC_TNC_Cher PRIV PRIV [id number] [facility] 00:00:00 00:00:00 ches_I [id number] Medica l Results Test Description Test Time Test Comments Results Result Comments Source HEMATOLOGY 2019-02-26 13:52:00 Test Item Value Reference Range Interpretation Comme nts Retic Auto (test code = Retic Auto) 1.1 0.5-1.5 [id number] 13:52:00 Test Item Value Reference Range Interpretation Comments WBC (test code = WBC) 4.9 3.7-10.4 [facility] HospitalCvhxiboFPDDLGBNDV1265-86-01 13:52:00 Test Item Value Reference Range Interpretation Comments RBC (test code = RBC) 4.01 4.20-5.40 [facility] HospitalZrownvzUEQSTLJZVU0687-81-24 13:52:00 Test Item Value Reference Range Interpretation Comments Hgb (test code = Hgb) 12.4 12.0-16.0 [facility] HospitalBosejdlTOYMDDXDCH2739-80-93 13:52:00 Test Item Value Reference Range Interpretation Comments Hct (test code = Hct) 35.1 36.0-48.0 [facility] HospitalFdepgjiNVQEERUEUA9755-66-54 13:52:00 Test Item Value Reference Range Interpretation Comments MCV (test code = MCV) 87.6 80.0-98.0 [facility] HospitalNlpfywyVBEHQWBTUN0898-28-44 13:52:00 Test Item Value Reference Range Interpretation Comments MCH (test code = MCH) 30.8 pg 27.0-31.0 [facility] HospitalWbmlaqkCJHDIIHKBA5619-28-65 13:52:00 Test Item Value Reference Range Interpretation Comments MCHC (test code = MCHC) 35.2 32.0-36.0 [facility] HospitalKwisilaIBUWASDHBH7940-55-30 13:52:00 Test Item Value Reference Range Interpretation Comments RDW (test code = RDW) 14.6 11.5-14.5 [facility] HospitalPtvidoqWVHVGYCOHZ3946-74-34 13:52:00 Test Item Value Reference Range Interpretation Comments Platelet (test code = Platelet) 223 133-450 [facility] HospitalWijpxzmOQWHHZWZUG1742-63-37 13:52:00 Test Item Value Reference Range Interpretation Comments MPV (test code = MPV) 6.5 7.4-10.4 [facility] HospitalRggacdbTRTTKVQOCF0756-62-11 13:52:00 Test Item Value Reference Range Interpretation Comments Neutrophils # (test code = Neutrophils 2.7 1.5-8.1 #) [facility] HospitalEwhqzqcFRSPNDZBMU1242-15-95 13:52:00 Test Item Value Reference Range Interpretation Comments Lymphocytes # (test code = Lymphocytes 1.6 1.0-5.5 #) [facility] HospitalVtnnfqxDXUMXVYSRS0987-72-01 13:52:00 Test Item Value Reference Range Interpretation Comments Monocytes # (test code 0.4 See_Comment [Aut omated message] The = Monocytes #) system which generated this result tra nsmitted reference range : <=0.8. The reference r shimon was not used to int erpret this result as normal/abnormal . [facility] HospitalEdaslskKDNRLVCNFZ1097-10-62 13:52:00 Test Item Value Reference Range Interpretation Comments Eosinophils # (test code 0.2 See_Comment [A utomated message] The = Eosinophils #) system whic h generated this result tra nsmitted reference range : <=0.5. The reference r shimon was not used to int erpret this result as normal/abnormal . [facility] HospitalGvnujzhTUCGGOLXMF1025-26-15 13:52:00 Test Item Value Reference Range Interpretation Comments Segs (test code = Segs) 55.0 45.0-75.0 [facility] HospitalKqadevuXJSRSJTZSX7284-00-26 13:52:00 Test Item Value Reference Range Interpretation Comments Bands (test code = 0.0 See_Comment [Automat ed message] The Bands) system which ge nerated this result transmit pipo reference range : <=11.0. The reference r shimon was not used to interpr et this result as antonia l/abnormal. [facility] HospitalGsanxpoSJXGNFRFJH1173-22-19 13:52:00 Test Item Value Reference Range Interpretation Comments Lymphocytes (test code = Lymphocytes) 33.0 20.0-40.0 [facility] HospitalXsapcrzAXSJLIOFQH1264-91-99 13:52:00 Test Item Value Reference Range Interpretation Comments Monocytes (test code = Monocytes) 8.0 2.0-12.0 [facility] HospitalAqguxcaIGIJRZEYFZ7101-82-82 13:52:00 Test Item Value Reference Range Interpretation Comments Eosinophils (test code = 4.0 See_Comment [A utomated message] The Eosinophils) system which ge nerated this result tra nsmitted reference range : <=4.0. The reference r shimon was not used to int erpret this result as normal/abnormal . [facility] HospitalMznbxrcTVPROMXLBG6941-17-01 13:52:00 Test Item Value Reference Range Interpretation Comments Atypical Lymphs (test code = Atypical 0.0 Lymphs) [facility] QfabbeiKGEYZVHOLW1756-11-51 13:52:00 Test Item Value Reference Range Interpretation Comments RBC Morph (test code = Normal (02/26/19 8:52 RBC Morph) AM) [facility] XviswslBWMQZTTVKQ4777-65-25 13:52:00 Test Item Value Reference Range Interpretation Comments Plt Morph (test code = Normal (02/26/19 8:52 Plt Morph) AM) [facility] RdlngowHKMLFBKOZZ4028-74-77 [facility] 2019-02-26 13:52:004.9[facility] BqojlifAXGLSNMCWQ9700-35-22 13:52:004.01[facility] VhynfxmBDFJHZSCWP3750-57-41 13:52:0012.4[facility] ZnjytqwFIPZAPRTPZ4866-72-93 13:52:0035.1[facility] IyclcpiGZSXIGZWEJ1982-79-89 13:52:0087.6[facility] [place] MCXZDQJCRR0717-39-91 13:52:00 Test Item Value Reference Range Interpretation Comments MCH (test code = MCH) 30.8 pg 27.0-31.0 [facility] TjgvjskBSQQHZKQWP6457-94-66 13:52:0035.2[facility] 2019-02-26 13:52:0014.6[facility] NeuvllqXJHQLVMBMZ7093-26-28 13:52:64121Ouxqzqxp McptlbhCDNQTEKKKF8992-54-44 13:52:006.5[facility] RrrufdpHUWBWQGDBO8775-37-27 13:52:002.7[facility] ZkjdwlqYKLZISTYXG8963-67-54 13:52:001.6[facility] RFTMSROHTI9179-49-75 13:52:000.4[facility] TmlqzbgFEDFFNROMH0061-96-39 13:52:000.2 [facility] TrnlzayDAGFWITMQW2100-76-60 13:52:0055.0[facility] 2019-02-26 13:52:000.0[facility] FqprosdIMHXXWWTNO5115-82-04 13:52:0033.0[facility] BvcbkyxAXIOOPNKHX2289-62-89 13:52:008.0[facility] EsmkabwRTXLJKINCQ5470-04-79 13:52:004.0[facility] ArnzocgCULCNTMPZV5766-78-62 13:52:000.0[facility] [place] TIYFBKYBQO3451-28-17 13:52:00Normal (02/26/19 8:52 AM)[facility] 13:52:00Normal (02/26/19 8:52 AM)[facility]
--- NOTE | 2022-03-17 16:21 | RAD REPORT ---
EXAM DESCRIPTION: RAD - Lumbar Spine 3 Views - 03/17/2022 4:14 pm CLINICAL HISTORY: PAIN COMPARISON: No comparisons FINDINGS: Remote appearing T12 and L1 compression fractures with approximately 20% loss of height an d 30% loss of height, respectively. Mild dextroscoliotic curvature centered at L2. Endplate spurring is noted. Disc heights are maintained. Atherosclerosis. IMPRESSION: T12 and L1 compression fractures are favored chronic. Correlate with point tenderness. N o acute fractures identified.
--- NOTE | 2022-03-17 16:21 | RAD REPORT ---
EXAM DESCRIPTION: RAD - Sacrum And Coccyx - 03/17/2022 4:15 pm CLINICAL HISTORY: PAIN COMPARISON: Lumbar Spine 3 Views dated 03/17/2022 FINDINGS/IMPRESSION: No acute fracture. No malalignment. No significant focal degenerative changes.
[2022-03-17] MEDS ORDERED: HYDROCODONE/APAP 5/325 MG TAB ONE (17:04)
--- NOTE | 2022-03-17 17:19 | ER ---
Nurse's Notes [facility] Name: Inez Cline Age: 66 yrs Sex: Female : 1955 Arrival Date: 03/17/2022 Time: 13:52 Bed 12 Private MD: Nehemiah Thomas V Diagnosis: Low back pain Presentation: 03/17 15:36 Chief complaint: Patient states: [place]03[place]14-20[place]; vg1 stated pain is getting and denies numbness or tingling to extremities. Also stated hit head without LOC. Coronavirus screen: Vaccine status: Patient reports receiving the 2nd dose of the covid vaccine. Client denies travel out of the [place] in the last 14 days. Ebola Screen: Patient denies exposure to infectious person. Patient denies travel to an Ebola-affected area in the 21 days before illness onset. Initial Sepsis Screen: Does the patient meet any 2 criteria? No. Patient's initial sepsis screen is negative. Does the patient have a suspected source of infection? No. Patient's initial sepsis screen is negative. Risk Assessment: Do you want to hurt yourself or someone else? Patient reports no desire to harm self or others. Onset of symptoms was March 14, 2022. 15:36 Method Of Arrival: Ambulatory vg1 15:36 Acuity: YOLANDA 4 vg1 Triage Assessment: 15:41 General: Appears uncomfortable, Behavior is calm, cooperative. Pain: Complains of pain vg1 in back Pain currently is 8 out of 10 on a pain scale. Neuro: Level of Consciousness is awake, alert, obeys commands, Oriented to person, place, time, situation. Musculoskeletal: Circulation, motion, and sensation intact. Historical: - Allergies: 15:41 PENICILLINS; vg1 - Home Meds: 15:42 atorvastatin 40 mg Oral tab 1 tab once daily [Active]; fluoxetine 40 mg Oral cap 1 cap vg1 once daily [Active]; levothyroxine 88 mcg tab 1 tab once daily [Active]; lamotrigine 200 mg Oral tr24 1 tab once daily [Active]; quetiapine 300 mg Oral tab 1 tab nightly [Active]; - PMHx: 15:41 High Cholesterol; Thyroid problem; vg1 - Immunization history:: Client reports receiving the 2nd dose of the Covid vaccine. - Social history:: Smoking status: Patient denies any tobacco usage or history of. Screenin:03 Abuse screen: Denies threats or abuse. Nutritional screening: No deficits noted. bm7 Tuberculosis screening: No symptoms or risk factors identified. Fall Risk None identified. Assessment: 17:03 Reassessment: No changes from previously documented assessment. Patient and/or family bm7 updated on plan of care and expected duration. Pain level reassessed. Patient is alert, oriented x 3, equal unlabored respirations, skin warm/dry/pink. Vital Signs: 15:36 BP 148 / 87; Pulse 73; Resp 16; Temp 97.9(TE); Pulse Ox 100% on R/A; Weight 76.2 kg; vg1 Height 5 ft. 7 in. (170.18 cm); Pain 8/10; 17:05 BP 148 / 87; Pulse 78; Resp 16; Pulse Ox 100% on R/A; Pain 7/10; bm7 18:09 BP 140 / 76; Pulse 80; Resp 16; Pulse Ox 100% on R/A; Pain 2/10; bm7 15:36 Body Mass Index 26.31 (76.20 kg, 170.18 cm) vg1 ED Course: 13:52 Patient arrived in ED. rg4 13:56 Nehemiah Thomas MD is Private Physician. rg4 15:41 Triage completed. vg1 15:41 Arm band placed on. vg1 15:45 Zane Lee NP is PHCP. pm1 15:45 Reynaldo Khan MD is Attending Physician. pm1 16:16 Lumbar Spine (3 Views) XRAY In Process Unspecified. EDMS 16:16 Sacrum And Coccyx XRAY In Process Unspecified. EDMS 16:51 Adrianna Rosales, RN is Primary Nurse. bm7 17:03 No apparent distress. Resting quietly. Awaiting for x-ray. bm7 17:03 Patient has correct armband on for positive identification. Client placed on continuous bm7 cardiac and pulse oximetry monitoring. NIBP monitoring applied. Warm blanket given. 17:03 Patient maintains SpO2 saturation greater than 95% on room air. bm7 18:09 No provider procedures requiring assistance completed. Patient did not have IV access bm7 during this emergency room visit. Administered Medications: 16:59 Drug: HYDROcodone-acetaminophen 5 mg-325 mg 1 tabs Route: PO; bm7 18:10 Follow up: Response: Pain is decreased bm7 Medication: 17:03 VIS not applicable for this client. bm7 Outcome: 17:18 Discharge ordered by . pm1 18:09 Discharged to home via wheelchair, with family. bm7 18:09 Condition: improved 18:09 Discharge instructions given to patient, family, Instructed on discharge instructions, follow up and referral plans. medication usage, Demonstrated understanding of instructions, follow-up care, medications, Prescriptions given X 1. 18:10 Patient left the ED. bm7 Signatures: Dispatcher [employer] EDMS Zane Lee NP FLEX O WRITER OPERATOR pm1 Mariela Wilson rg4 Urmila Wilson RN RN vg1 Adrianna Rosales, RN RN bm7 Corrections: (The following items were deleted from the chart) 15:42 15:36 BP 157 / 98; Pulse 73bpm; Resp 16bpm; Pulse Ox 100% RA; Temp 97.9F Temporal; 76.2 vg1 kg; Height 5 ft. 7 in.; BMI: 26.3; Pain 8/10; vg1
--- NOTE | 2022-03-17 17:19 | EDPHYS ---
Physician Documentation [facility] Name: Inez Cilne Age: 66 yrs Sex: Female : 1955 Arrival Date: 03/17/2022 Time: 13:52 Bed 12 Private MD: Nehemiah Thomas V ED Physician Reynaldo Khan HPI: 03/17 16:25 This 66 yrs old Female presents to ER via Ambulatory with complaints of Back Pain. pm1 16:25 The patient presents with pain that is acute. The symptoms are located in the coccyx pm1 area, left low back and right low back. Onset: The symptoms/episode began/occurred 2 day(s) ago. The pain does not radiate. Associated signs and symptoms: Pertinent negatives: dysuria, fever, incontinence, numbness, tingling. The problem was sustained during a fall, Patient fell onto her buttocks in the sand while standing. Modifying factors: The patient symptoms are alleviated by nothing, the patient symptoms are aggravated by Sitting and palpation. Severity of symptoms: in the emergency department the symptoms are unchanged. The patient has not experienced similar symptoms in the past. The patient has not recently seen a physician. Patient reports history of unsteady gait and has had multiple falls. Patient was standing in the sand and fell landing straight onto her bottom. Negative for any other injury or pain except for tailbone pain and sides of her lower back. Historical: - Allergies: 15:41 PENICILLINS; vg1 - Home Meds: 15:42 atorvastatin 40 mg Oral tab 1 tab once daily [Active]; fluoxetine 40 mg Oral cap 1 cap vg1 once daily [Active]; levothyroxine 88 mcg tab 1 tab once daily [Active]; lamotrigine 200 mg Oral tr24 1 tab once daily [Active]; quetiapine 300 mg Oral tab 1 tab nightly [Active]; - PMHx: 15:41 High Cholesterol; Thyroid problem; vg1 - Immunization history:: Client reports receiving the 2nd dose of the Covid vaccine. - Social history:: Smoking status: Patient denies any tobacco usage or history of. ROS: 16:25 Constitutional: Negative for fever, chills, and weight loss, Cardiovascular: Negative pm1 for chest pain, palpitations, and edema, Respiratory: Negative for shortness of breath, cough, wheezing, and pleuritic chest pain. 16:25 Skin: Negative for injury, rash, and discoloration, Neuro: Negative for headache, weakness, numbness, tingling, and seizure. 16:25 Back: Positive for of the sacrum, left low back and right low back. 16:25 All other systems are negative. Exam: 16:25 Constitutional: This is a well developed, well nourished patient who is awake, alert, pm1 and in no acute distress. Head/Face: Normocephalic, atraumatic. 16:25 Skin: Warm, dry with normal turgor. Normal color with no rashes, no lesions, and no evidence of cellulitis. MS/ Extremity: Pulses equal, no cyanosis. Neurovascular intact. Full, normal range of motion. 16:25 Cardiovascular: Exam negative for acute changes, Rate: normal, Rhythm: regular, Pulses: no pulse deficits are appreciated, Heart sounds: normal, normal S1and S2. 16:25 Respiratory: Exam negative for acute changes, respiratory distress, shortness of breath. 16:25 Back: vertebral tenderness, is appreciated at coccyx, muscle spasm, is appreciated in the left low back and right low back. 16:25 Neuro: Exam negative for acute changes, Orientation: is normal, Mentation: is normal, Motor: is normal, moves all fours. Vital Signs: 15:36 BP 148 / 87; Pulse 73; Resp 16; Temp 97.9(TE); Pulse Ox 100% on R/A; Weight 76.2 kg; vg1 Height 5 ft. 7 in. (170.18 cm); Pain 8/10; 17:05 BP 148 / 87; Pulse 78; Resp 16; Pulse Ox 100% on R/A; Pain 7/10; bm7 18:09 BP 140 / 76; Pulse 80; Resp 16; Pulse Ox 100% on R/A; Pain 2/10; bm7 15:36 Body Mass Index 26.31 (76.20 kg, 170.18 cm) vg1 MDM: 16:25 Patient medically screened. pm1 17:17 Data reviewed: vital signs. Data interpreted: Pulse oximetry: on room air is 100 %. pm1 Interpretation: normal. Counseling: I had a detailed discussion with the patient and/or guardian regarding: the historical points, exam findings, and any diagnostic results supporting the discharge/admit diagnosis, radiology results, the need for outpatient follow up, to return to the emergency department if symptoms worsen or persist or if there are any questions or concerns that arise at home. 03/17 15:52 Order name: Lumbar Spine (3 Views) XRAY; Complete Time: 16:25 pm1 03/17 15:52 Order name: Sacrum And Coccyx XRAY; Complete Time: 16:25 pm1 Administered Medications: 16:59 Drug: HYDROcodone-acetaminophen 5 mg-325 mg 1 tabs Route: PO; bm7 18:10 Follow up: Response: Pain is decreased bm7 Disposition Summary: 03/17/22 17:18 Discharge Ordered Location: Home pm1 Problem: new pm1 Symptoms: have improved pm1 Condition: Stable pm1 Diagnosis - Low back pain pm1 Followup: pm1 - With: Emergency Department - When: As needed - Reason: Worsening of condition Followup: pm1 - With: Private Physician - When: 2 - 3 days - Reason: Recheck today's complaints, Continuance of care, Re-evaluation by your physician Discharge Instructions: - Discharge Summary Sheet pm1 - Acute Back Pain, Adult pm1 - Back Injury Prevention, Azkl-tp-Nlzv pm1 - Tailbone Injury pm1 Forms: - Medication Reconciliation Form pm1 - Thank You Letter pm1 - Antibiotic Education pm1 - Prescription Opioid Use pm1 Prescriptions: - Tylenol-Codeine #3 300 mg-30 mg Oral - take 2 tablet by ORAL route every 6 hours As needed; 20 tablet; Refills: 0, pm1 Product Selection Permitted Addendum: 03/18/2022 20:32 Co-signature as Attending Physician, Reynaldo Khan MD. r n Signatures: Dispatcher [employer] Reynaldo Cardozo MD MD rn Marinas, Patrick, ADE BEHAVIORAL INSTRUCTOR pm1 Urmila Wilson RN RN vg1 Adrianna Rosales RN RN bm7
[2022-03-18 09:01] VITALS: BP 148/87; TEMP 97.9; O2SAT 100
== END 2022-03-17 18:10 | disposition home or self-care (01) ==
LOC: ER 13:50
DX: M54.50 Low back pain, unspecified (principal)
CPT/HCPCS: 72100; 72220; 99284